=== PATIENT | male | born 1970 | race Caucasian/White ===

== ENCOUNTER 2022-07-23 08:32 | Emergency (ER) | payer MEDICAID, SELFPAY ==
[2022-07-23 08:34] VITALS: BP 142/103; PULSE 77; RESP 16; TEMP 36.9; O2SAT 96; BMI 23.9
--- NOTE | 2022-07-23 09:13 | ED.VIS.DENTA ---
HPI History of Present Illness Chief Complaint: Dental Informant: patient Narrative Narrative: 2-year-old male with a history of widespread dental decay presenting to the emergency room with dental pain in the left upper side. He notes that it started throbbing last night and he went to the pharmacy and they suggested that he come up to the emergency. He is looking for a new dentist. PFSH PFSH Home Medications penicillin V potassium 500 mg tablet 500 mg PO 4X/DAY #40 tabs 05/22/16 [Rx Last Taken Unknown] hydrocodone-acetaminophen 5-325mg 5mg-325mg 1 tab PO Q6H PRN PRN Pain 3 days #12 TABLETS 07/23/22 [Rx Last Taken Unknown] penicillin V potassium 250 mg tablet 500 mg PO 4X/DAY #40 tabs 07/23/22 [Rx Last Taken Unknown] Allergy/AdvReac Type Severity Reaction Status Date / Time No Known Allergies Allergy Verified 07/23/22 08:34 Social History Smoking Status: Current every day smoker ROS ROS ED Constitutional Constitutional ED: Denies chills or weight loss Eyes Eyes: Denies change in vision or diplopia ENT ENT ED: Reports other Details: Dental pain ; Denies ear pain, rhinorrhea or sore throat Cardiovascular Cardiovascular: Denies chest pain, orthopnea, palpitations or racing heartbeat Respiratory/Chest Respiratory/Chest: Denies cough, dyspnea or orthopnea Gastrointestinal Gastrointestinal: Denies abdominal pain, diarrhea, nausea or vomiting Genitourinary Genitourinary ED: Denies dysuria, hematuria or urinary frequency Musculoskeletal Musculoskeletal: Denies arthralgias or myalgias Integumentary Denies abscess or rash Neurologic Neurologic: Denies headache(s) or weakness Psychiatric Psychiatric: Denies anxiety, depression, suicidal ideation or suicidal thoughts Endocrine Endocrinology: Denies polydipsia, polyphagia or polyuria Allergic/Immunologic Allergic/Immunologic ED: Denies mouth swelling, tongue swelling or urticaria EXAM Physical Exam Const Vital Signs: 07/23/22 08:34 Temperature 98.4 F Temperature Source Oral Pulse Rate 77 Respiratory Rate 16 Blood Pressure 142/103 H Blood Pressure Mean 116 Pulse Ox 96 Oxygen Delivery Method Room Air Positive well nourished and well developed General Appearance ED: well developed HEENT Reports normocephalic, head/scalp atraumatic and moist mucous membranes HEENT Narrative: There is widespread dental decay. His multiple teeth decayed down to the gumline. There are some erythema of the gumline but no obvious drainable abscess Eyes PERRL and EOMs intact bilaterally Neck no lymphadenopathy, supple and no JVD Resp normal respiratory effort and clear to auscultation bilaterally Cardio regular rate, regular rhythm and no murmurs GI normal to inspection, nondistended, normoactive bowel sounds and non-tender Palpation: soft Back/Spine no CVA tenderness and normal ROM Extremity normal to inspection General Extremety ED: Negative for edema General Extremity: Negative for edema Neuro oriented x3 and CN's II-XII intact bilaterally Sensorium / Orientation: alert Motor Exam: strength 5/5 throughout Psych mental status grossly normal Mood & Affect: Negative for depressed or tearful Skin no rashes or lesions noted and no wounds MDM MDM MDM Narrative Medical decision making narrative: Patient will be started on penicillin and hydrocodone. Return if worsening or concerns Discharge Plan Triage Chief Complaint: Dental ED Provider: Amandeep Cota Dx/Rx/DC Orders Clinical Impression: Odontalgia Instructions: ED Dental Abscess Prescriptions: New penicillin V potassium 250 mg tablet 500 mg PO 4X/DAY Qty: 40 0RF hydrocodone-acetaminophen [hydrocodone-acetaminophen] 5-325 mg tablet 1 tab PO Q6H PRN PRN (Reason: Pain) 3 Days Qty: 12 0RF No Action penicillin V potassium 500 MG tablet 500 mg PO 4X/DAY Qty: 40 0RF Primary Care Provider: Taco Ribera Referrals: Taco Ribera MD [Primary Care Provider] - As Needed Disposition Disposition: Home, Self Care
[2022-07-23 09:18] VITALS: BP 142/103; PULSE 77; RESP 16; TEMP 36.9; O2SAT 96
== END 2022-07-23 09:24 | disposition home or self-care (01) ==
PROVIDERS: Emergency Provider Emergency Medicine; PCP Family Medicine; Visit Provider Emergency Medicine
DX: K08.89 Other specified disorders of teeth and supporting structures (principal); F17.200 Nicotine dependence, unspecified, uncomplicated
CPT/HCPCS: 99282